=== PATIENT | female | born 1930 | race Caucasian/White ===

== ENCOUNTER 2017-01-01 00:16 | Inpatient (IN) | payer OTHER ==
--- NOTE | 2017-01-01 00:21 | PDOC ---
History of Present Illness - General History Source: EMS, [facility] Exam Limitations: Clinical Condition - History of Present Illness Initial Comments: 01/01/17 00:21 The patient is an 86 year old female with history of hypertension, thyroid disease, and dementia, brought in by EMS for left sided weakness and altered mental status this evening. Per EMS, the patient was found slumped over in her chair by [facility] staff at 11PM. Last known well was 3PM. Patient is unable to provide remainder of history secondary to clinical condition. <Magda Beltran - Last Filed: 01/01/17 00:21> <Thea Betancourt - Last Filed: 01/01/17 05:50> - General Chief Complaint: CVA/TIA Stated Complaint: STROKE Past History <Magda Beltran - Last Filed: 01/01/17 00:21> <Thea Betancourt - Last Filed: 01/01/17 05:50> - Past Medical History Allergies/Adverse Reactions: Allergies Allergy/AdvReac Type Severity Reaction Status Date / Time No Known Allergies Allergy Verified 01/01/17 00:19 Home Medications: Ambulatory Orders Amlodipine Besylate [Norvasc -] 2.5 mg PO DAILY 01/01/17 Calcium Carbonate [Tums] 200 mg PO 01/01/17 Cholecalciferol (Vitamin D3) [Vitamin D3 -] 1,000 unit PO DAILY 01/01/17 Furosemide [Lasix -] 40 mg PO DAILY 01/01/17 Galantamine Hydrobromide [Razadyne (Nf)] 4 mg NR BID 01/01/17 Levothyroxine [Synthroid -] 50 mcg PO DAILY 01/01/17 Raloxifene HCl 60 mg PO DAILY 01/01/17 Review of Systems - Review of Systems Able to Perform ROS?: Yes Comments:: 01/01/17 00:33 Patient is unable to provide ROS secondary to clinical condition. <Magda Beltran - Last Filed: 01/01/17 00:21> *Physical Exam - Physical Exam Comments: 01/01/17 00:34 GENERAL: Awake, moderately alert, not fully oriented (baseline dementia) HEAD: No signs of trauma EYES: PERRLA, sclera anicteric, conjunctiva clear ENT: Auricles normal inspection, hearing grossly normal, nares patent, oropharynx clear without exudates. Moist mucosa NECK: Supple, no lymphadenopathy, JVD, or masses LUNGS: Breath sounds equal, clear to auscultation bilaterally. No wheezes, and no crackles HEART: Regular rate and rhythm, normal S1 and S2, no murmurs, rubs or gallops ABDOMEN: Soft, normoactive bowel sounds. No guarding, no rebound. No masses EXTREMITIES: +B/l lower extremity pitting edema, right greater than left. Normal range of motion. No clubbing or cyanosis. No cords, erythema, or tenderness NEUROLOGICAL: See NIHSS. SKIN: Warm, Dry, normal turgor, no rashes or lesions noted. <Magda Beltran - Last Filed: 01/01/17 00:21> NIH Stroke Scale - Last Known Well Date/Time & Onset Date Last Known Well: 01/01/17 Time Last Known Well: 15:00 - Initial Evaluation Level of consciousness: Alert Ask patient the month and their age: Both incorrect Ask patient to open & close eyes; make fist and let go: Obeys both correctly Best gaze (horizontal eye movement): Partial gaze palsy Visual field testing: Complete hemianopia Facial paresis (Show teeth/raise eyebrows/close eyes tight): Partial paralysis ( total or near paralysis of lower face) Motor Function: Left Arm: No effort against gravity Motor Function: Right Arm: Normal (extends arm 90 (or 45) degrees for 10 seconds without drift Motor Function: Left Leg: No effort against gravity Motor Function: Right Leg: Normal (extends leg 30 degrees for 5 seconds without drift) Limb Ataxia: No ataxia Sensory(Use pinprick test arms,legs,trunk,face/side to side): Normal Best language (Describe picture, name items, read sentences): Mild to moderate aphasia Dysarthria (read several words): Mild to moderate slurring of words Extinction and Inattention: Inattention or extinction bilaterally to one of the sensory modalities - Total Score NIH Stroke Scale Score: 16 <Thea Betancourt - Last Filed: 01/01/17 05:50> Critical Care Time/[facility] Note - Medical Decision Making Note: 01/01/17 00:41 Documentation prepared by Magda Beltran, acting as hospitalist medical director for Thea Betancourt MD. <Magda Beltran - Last Filed: 01/01/17 00:21> - Medical Decision Making Note: 01/01/17 00:50 Patient Name: MARBIN LAN THIS IS A PRELIMINARY REPORT FROM [facility] DATE OF SERVICE: 2017-01-01 00:24:14 IMAGES: 140 EXAM: CT HEAD without contrast HISTORY: Left sided stroke COMPARISON: None. TECHNIQUE: CT Head with serial axial images extending from the vertex to the base of skull was performed without vascular contrast. FINDINGS: Brain parenchyma is normal in attenuation with no mass or hematoma. There is no midline shift. Daniels and white matter differentiation is normal. There is some lucency in the periventricular white matter Ventricles are mildly prominent. Sulci and extra-axial CSF spaces are mildly prominent. Intracranial vascular structures are normal in attenuation. There is no calvarial fracture. Paranasal sinuses are normally aerated. IMPRESSION: No intracranial mass or bleed Chronic appearing involutional changes of aging THIS DOCUMENT HAS BEEN ELECTRONICALLY SIGNED 01/01/17 05:50 Labs are normal; EKG NSR; pt will be admitted to telelmetry for CVA; neuro consult requested for the AM. <Thea Betancourt - Last Filed: 01/01/17 05:50> Discharge Disposition <Magda Beltran - Last Filed: 01/01/17 00:21> - Discharge Dispostion Admit: Yes <Thea Betancourt - Last Filed: 01/01/17 05:50> - Diagnosis Cerebrovascular accident (CVA) - Discharge Dispostion Condition at time of disposition: Poor
[2017-01-01 00:23] VITALS: BMI 22.6
[2017-01-01 00:30] LABS: BASOPHIL 1.1 % (0-2.0); EOSINOPHIL 3.5 % (0-4.5); MCH 31.3 pg (25.7-33.7); MCHC 33.1 g/dl (32.0-36.0); MEAN CELL VOLUME 94.6 fl (80-96); MEAN PLT VOLUME 8.4 fl (7.5-11.1); NEUTROPHILS 49.9 % (42.8-82.8); PLATELET COUNT 203 K/MM3 (134-434); RDW 14.7 % (11.6-15.6); WHITE BLOOD COUNT 6.2 K/mm3 (4.0-10.0)
[2017-01-01 00:48] LABS: INR 1.04 (0.82-1.09); PROTHROMBIN TIME (PATIENT) 11.7 SEC (9.98-11.88)
[2017-01-01 01:59] LABS: ALBUMIN 2.9 g/dl (3.4-5.0); ANION GAP 13 (8-16); BILIRUBIN,TOTAL 0.2 mg/dL (0.2-1.0); CALCIUM 8.3 mg/dL (8.5-10.1); CO2 26 mmol/L (21-32); CREATININE 0.8 mg/dL (0.55-1.02); GLUCOSE,RANDOM 108 mg/dL (74-106); SGOT/AST 19 U/L (15-37); SGPT/ALT 14 U/L (12-78); TOT PROT 6.2 g/dl (6.4-8.2)
[2017-01-01 02:02] LABS: ALK PHOS 87 U/L (45-117); CPK 53 IU/L (26-192); TROPONIN I < 0.02 ng/ml (0.00-0.05)
[2017-01-01] MEDS ORDERED: ASPIRIN 81 MG CHEWABLE TABLETS PO ONE (03:19)
[2017-01-01] MEDS ORDERED: SODIUM CHLORIDE 1,000 ML IV STA (04:00)
--- NOTE | 2017-01-01 04:25 | HP ---
CHIEF COMPLAINT: Possible stroke as per jail PCP: Not on staff HISTORY OF PRESENT ILLNESS: Unable to obtain information due to patients medical condition. Most information obtained from ED staff Patient is an 86 year old female with a PMHx of HTN, hypothyroidism?, dementia who was BIBEMS from the [facility] due to altered mental status associated with left sided weakness. As per ED attending, patient's jail reports around 15:00 yesterday patient was in her normal state of health. Then around 23:00 yesterday during the night rounds, patient was found to be slumped over her chair and unable to move the left side of her body associated with slurred speech. By the time I met the patient, she was already sleeping and uncooperative. Patient intermittently opened her eyes and would go back to sleep. Last known well was around 15:00 yesterday and was out of the TPA window. ER course was notable for: (1) CT head which revealed no acute pathology (2) ASA given (3) Recent Travel: Unable to obtain information due to patients medical condition. PAST MEDICAL HISTORY: Unable to obtain information due to patients medical condition. PAST SURGICAL HISTORY: Unable to obtain information due to patients medical condition. Social History: Unable to obtain information due to patients medical condition. Family History: Unable to obtain information due to patients medical condition. Allergies: No Known Allergies Allergy (Verified 01/01/17 00:19) HOME MEDICATIONS: REVIEW OF SYSTEMS Unable to obtain information due to patients medical condition. PHYSICAL EXAMINATION Vital Signs - 24 hr 01/01/17 01/01/17 00:19 01:49 Temperature 98.1 F Pulse Rate 75 Pulse Rate [ 67 Apical] Respiratory 14 12 Rate Blood Pressure 158/75 Blood Pressure 131/80 [Right Arm] O2 Sat by Pulse 97 99 Oximetry (%) GENERAL: Sleeping, intermittently awake. HEAD: Normal with no signs of trauma. EYES: Pupils equal, round and reactive to light, Sclera anicteric, conjunctiva clear. NECK: (-) lymphadenopathy, JVD, or masses. LUNGS: Breath sounds equal, clear to auscultation bilaterally. No wheezes, and no crackles. No accessory muscle use. HEART: bradycardiac with regular rhythm, normal S1 and S2 without murmur, rub or gallop. ABDOMEN: Soft, nontender, not distended, normoactive bowel sounds, no guarding, no rebound, no masses. UPPER EXTREMITIES: No peripheral edema. LOWER EXTREMITIES: No peripheral edema. NEUROLOGICAL: Left facial droop with slurred speech. Motor strength 0/5 in left lower and upper extremity. 5/5 in RLE and RUE. Limited examination due to patients medical condition. SKIN: Warm, dry, normal turgor, no rashes or lesions noted, normal capillary refill. Laboratory Results - last 24 hr 01/01/17 01/01/17 01/01/17 00:20 00:20 00:23 WBC RBC Hgb Hct MCV MCH MCHC RDW Plt Count MPV Neutrophils % Lymphocytes % Monocytes % Eosinophils % Basophils % PT with INR 11.70 INR 1.04 PTT (Actin FS) 28.0 Sodium Cancelled Potassium Cancelled Chloride Cancelled Carbon Dioxide Cancelled Anion Gap Cancelled BUN Cancelled Creatinine Cancelled Creat Clearance w eGFR Cancelled Random Glucose Cancelled Calcium Cancelled Total Bilirubin Cancelled AST Cancelled ALT Cancelled Alkaline Phosphatase Cancelled Creatine Kinase Cancelled Troponin I Cancelled Total Protein Cancelled Albumin Cancelled 01/01/17 01/01/17 00:23 01:12 WBC 6.2 RBC 3.61 Hgb 11.3 Hct 34.2 MCV 94.6 MCH 31.3 MCHC 33.1 RDW 14.7 Plt Count 203 MPV 8.4 Neutrophils % 49.9 Lymphocytes % 33.3 Monocytes % 12.2 H Eosinophils % 3.5 Basophils % 1.1 PT with INR INR PTT (Actin FS) Sodium 141 Potassium 3.8 Chloride 102 Carbon Dioxide 26 Anion Gap 13 BUN 24 H Creatinine 0.8 Creat Clearance w eGFR > 60 Random Glucose 108 H Calcium 8.3 L Total Bilirubin 0.2 AST 19 ALT 14 Alkaline Phosphatase 87 Creatine Kinase 53 Troponin I < 0.02 Total Protein 6.2 L Albumin 2.[address] (01/01/17): No intracranial mass or bleed. Chronic appearing involutional changes of aging ASSESSMENT/PLAN: Patient is an 86 year old female with a PMHx of HTN, dementia who was sent by her [facility] due to altered mental status associated with slurred speech and left sided weakness. Patient admitted for further monitoring and management. Left Sided Weakness -Likely secondary to possible CVA/TIA -NIHSSS according to ED: 16. -Head CT ordered and negative -Asa 162mg ordered -Statin 40mg ordered -Neuro checks Q1H -HOB 15 degrees -Seizure precautions -NPO -Speech and swallow ordered -PT ordered -Neurology consult placed -Lipid panel, A1C, TSH, B12 ordered -Carotid Doppler and ECHO ordered to rule out any cardiac or vascular etiology -Will likely need an MRI if neurology wants -May allow permissive HTN SBP>160 HTN -Currently hypotensive. Will hold off on BP mediations -Will need to med/rec medications by calling jail facility -Monitor BP Hypotensive -IV NS @75mls/hr -1 bolus ordered -Need to maintain permissive BP -Continu to monitor BP and will hold all anti-htn medications Dementia -Will need day team to confirm medications from jail F/E/N -IV NS @75mls/hr -Electrolytes wnl -NPO until speech and swallow eval Prophylaxis -High Risk. Heparin 5000units SQ Q8H -No GI required Disposition -Neurology consult placed. Awaiting recommendations Visit type - Emergency Visit Emergency Visit: Yes ED Registration Date: 01/01/17 Care time: The patient presented to the Emergency Department on the above date and was hospitalized for further evaluation of their emergent condition. - New Patient This patient is new to me today: Yes Date on this admission: 01/01/17 - Critical Care Critical Care patient: No
[2017-01-01] MEDS ORDERED: ASPIRIN 81 MG CHEWABLE TABLETS ONE ×2 (04:44→04:52)
[2017-01-01] MEDS: SODIUM CHLORIDE 1,000 ML IV SCH (04:54)
[2017-01-01] MEDS: HEPARIN NA (PORCINE) 5,000 UNITS/ML 1ML VIAL SQ SCH ×3 (06:04→22:27)
[2017-01-01 07:35] LABS: ALBUMIN 2.7 g/dl (3.4-5.0); ANION GAP 12 (8-16); BILIRUBIN,TOTAL 0.2 mg/dL (0.2-1.0); CALCIUM 7.7 mg/dL (8.5-10.1); CHOLESTEROL 192 mg/dL (50-200); CO2 24 mmol/L (21-32); CREATININE 0.7 mg/dL (0.55-1.02); GLUCOSE,RANDOM 93 mg/dL (74-106); MAGNESIUM 1.8 mg/dL (1.8-2.4); SGOT/AST 18 U/L (15-37); SGPT/ALT 14 U/L (12-78); TOT PROT 6.1 g/dl (6.4-8.2)
[2017-01-01 07:41] LABS: THYROID STIMULATING HORMONE 1.88 uIU/ml (0.358-3.74)
[2017-01-01 07:58] LABS: ALK PHOS 90 U/L (45-117)
--- NOTE | 2017-01-01 08:08 | PN ---
Teaching Attending Note Name of Resident: Emma Miller ATTENDING PHYSICIAN STATEMENT I saw and evaluated the patient. I reviewed the resident's note and discussed the case with the resident. I agree with the resident's findings and plan as documented. SUBJECTIVE: Patient brought from [place] for left sided weakness and slurred speech. H/O HTN and hypothyroidism, need further history from [place] or family as patient unable to communicate. No prior admissions to the facility. OBJECTIVE: Alert and responisve to name, aphasic HEENT: perrl, EOMI, left facial droop CVS: RRR, S1,S 2 Lungs: CTA ABd: Soft, NT, ND, BS+ Ext left hemiplegia. no edema Neuro: follows commands. CBCD WBC 6.2 K/mm3 (4.0-10.0) 01/01/17 00:23 RBC 3.61 M/mm3 (3.60-5.2) 01/01/17 00:23 Hgb 11.3 GM/dL (10.7-15.3) 01/01/17 00:23 Hct 34.2 % (32.4-45.2) 01/01/17 00:23 MCV 94.6 fl (80-96) 01/01/17 00:23 MCHC 33.1 g/dl (32.0-36.0) 01/01/17 00:23 RDW 14.7 % (11.6-15.6) 01/01/17 00:23 Plt Count 203 K/MM3 (134-434) 01/01/17 00:23 MPV 8.4 fl (7.5-11.1) 01/01/17 00:23 CMP Sodium 141 mmol/L (136-145) 01/01/17 01:12 Potassium 3.8 mmol/L (3.5-5.1) 01/01/17 01:12 Chloride 102 mmol/L (98-107) 01/01/17 01:12 Carbon Dioxide 26 mmol/L (21-32) 01/01/17 01:12 Anion Gap 13 (8-16) 01/01/17 01:12 BUN 24 mg/dL (7-18) H 01/01/17 01:12 Creatinine 0.8 mg/dL (0.55-1.02) 01/01/17 01:12 Creat Clearance w eGFR > 60 (>60) 01/01/17 01:12 Random Glucose 108 mg/dL (74-106) H 01/01/17 01:12 Calcium 8.3 mg/dL (8.5-10.1) L 01/01/17 01:12 Total Bilirubin 0.2 mg/dL (0.2-1.0) 01/01/17 01:12 AST 19 U/L (15-37) 01/01/17 01:12 ALT 14 U/L (12-78) 01/01/17 01:12 Alkaline Phosphatase 87 U/L (45-117) 01/01/17 01:12 Total Protein 6.2 g/dl (6.4-8.2) L 01/01/17 01:12 Albumin 2.9 g/dl (3.4-5.0) L 01/01/17 01:12 CARDIAC ENZYMES Creatine Kinase 53 IU/L (26-192) 01/01/17 01:12 Troponin I < 0.02 ng/ml (0.00-0.05) 01/01/17 01:12 ASSESSMENT AND PLAN: Acute CVA with left hemiplegia- stroke workup Aspirin 325 mg PO daily Statin CT head in 24 hours, carotid doppler and ECHO. Follow neurology consult PT and speech and swallow
--- NOTE | 2017-01-01 09:05 | PN ---
Physical Exam: SUBJECTIVE: Patient seen and examined Patient is an 86 year old female with a PMHx of HTN, dementia who came in from [facility] due to altered mental status associated with left sided weakness. Patient was not a candidate for TPA since the time when she developed stroke is unknown therefore missed the TPA window. Daughter at bedside. Follows commands. Patient was transferred from [facility] with Left sided weakness. OBJECTIVE: Vital Signs Temperature 98.1 F 01/01/17 07:38 Pulse Rate 63 01/01/17 07:38 Respiratory Rate 18 01/01/17 07:40 Blood Pressure 133/60 01/01/17 07:38 O2 Sat by Pulse Oximetry (%) 100 01/01/17 07:40 GENERAL: The patient is awake, alert, follows some commands . in no acute distress. HEAD: Normal with no signs of trauma. EYES: extraocular movements intact, sclera anicteric, conjunctiva clear. Positive for lateral gaze to the right. Cannot folloe ENT: Ears normal, oropharynx clear without exudates, moist mucous membranes. NECK: Trachea midline, full range of motion, supple. LUNGS: Breath sounds equal, clear to auscultation bilaterally, no wheezes, no crackles, no accessory muscle use. HEART: Regular rate and rhythm, S1, S2 without murmur, rub or gallop. ABDOMEN: Soft, nontender, nondistended, normoactive bowel sounds, no guarding, no rebound, no hepatosplenomegaly, no masses. EXTREMITIES: 2+ pulses, warm, well-perfused, no edema. NEUROLOGICAL: Cranial nerves II through XII grossly intact. Right conjugate gaze deviation ,unable to count fingers peripherally Mod left facial droop. Depressed gag. Left hemiparesis 2/5. Depressed reflexes on left. Left Babinski. PSYCH: Normal mood, normal affect. Has no left side neglect. SKIN: Warm, dry, normal turgor, no rashes or lesions noted CBCD WBC 6.2 K/mm3 (4.0-10.0) 01/01/17 00:23 RBC 3.61 M/mm3 (3.60-5.2) 01/01/17 00:23 Hgb 11.3 GM/dL (10.7-15.3) 01/01/17 00:23 Hct 34.2 % (32.4-45.2) 01/01/17 00:23 MCV 94.6 fl (80-96) 01/01/17 00:23 MCHC 33.1 g/dl (32.0-36.0) 01/01/17 00:23 RDW 14.7 % (11.6-15.6) 01/01/17 00:23 Plt Count 203 K/MM3 (134-434) 01/01/17 00:23 MPV 8.4 fl (7.5-11.1) 01/01/17 00:23 CMP Sodium 145 mmol/L (136-145) 01/01/17 06:57 Potassium 4.1 mmol/L (3.5-5.1) 01/01/17 06:57 Chloride 109 mmol/L (98-107) H 01/01/17 06:57 Carbon Dioxide 24 mmol/L (21-32) 01/01/17 06:57 Anion Gap 12 (8-16) 01/01/17 06:57 BUN 18 mg/dL (7-18) D 01/01/17 06:57 Creatinine 0.7 mg/dL (0.55-1.02) 01/01/17 06:57 Creat Clearance w eGFR > 60 (>60) 01/01/17 06:57 Random Glucose 93 mg/dL (74-106) 01/01/17 06:57 Calcium 7.7 mg/dL (8.5-10.1) L 01/01/17 06:57 Total Bilirubin 0.2 mg/dL (0.2-1.0) 01/01/17 06:57 AST 18 U/L (15-37) 01/01/17 06:57 ALT 14 U/L (12-78) 01/01/17 06:57 Alkaline Phosphatase 90 U/L (45-117) 01/01/17 06:57 Total Protein 6.1 g/dl (6.4-8.2) L 01/01/17 06:57 Albumin 2.7 g/dl (3.4-5.0) L 01/01/17 06:57 CARDIAC ENZYMES Creatine Kinase 53 IU/L (26-192) 01/01/17 01:12 Troponin I < 0.02 ng/ml (0.00-0.05) 01/01/17 01:12 Home Medication List Medication Instructions Recorded Confirmed Type Amlodipine Besylate [Norvasc -] 2.5 mg PO DAILY 01/01/17 01/01/17 History Calcium Carbonate [Tums] 200 mg PO 01/01/17 History Cholecalciferol (Vitamin D3) 1,000 unit PO DAILY 01/01/17 01/01/17 History [Vitamin D3 -] Furosemide [Lasix -] 40 mg PO DAILY 01/01/17 01/01/17 History Galantamine Hydrobromide [Razadyne 4 mg NR BID 01/01/17 01/01/17 History (Nf)] Levothyroxine [Synthroid -] 50 mcg PO DAILY 01/01/17 01/01/17 History Raloxifene HCl 60 mg PO DAILY 01/01/17 01/01/17 History Active Medications Generic Name Dose Route Start Last Admin Trade Name Freq PRN Reason Stop Dose Admin Aspirin 81 mg 01/01/17 10:00 Ecotrin - PO DAILY JAVIER Atorvastatin Calcium 40 mg 01/01/17 22:00 Lipitor - PO HS JAVIER Heparin Sodium (Porcine) 5,000 unit 01/01/17 06:00 01/01/17 06:04 Heparin - SQ 5,000 unit TID JAVIER Administration Sodium Chloride 1,000 mls @ 75 mls/hr 01/01/17 03:45 01/01/17 04:54 Normal Saline - IV 75 mls/hr ASDIR JAVIER Administration CT of head (01/01 PM) shows new right basal ganglia hypodensity; underlying atrophy; left ventricular dilatation. Carotid duplex doppler: Calcified intima and small plaques but no sig hemodynamic lesions. A/P: Patient is an 86 year old female with a PMHx of HTN, hypothyroidism, dementia from the [facility] due to altered mental status associated with left sided weakness. Missed the TPA apportunity. # Acute right cerebral vascular accident with left hemiplegia on Aspirin, lipitor, CT head in 24 hours and carotid doppler and ECHO. Swallowing evaluation. # Hx of Alzheimer's disease. # Hx of HTN continue meds DVT Px Heparin Visit type - Emergency Visit Emergency Visit: Yes ED Registration Date: 01/01/17 Care time: The patient presented to the Emergency Department on the above date and was hospitalized for further evaluation of their emergent condition. - New Patient This patient is new to me today: Yes Date on this admission: 01/01/17 - Critical Care Critical Care patient: No
[2017-01-01] MEDS: ASPIRIN COATED 81 MG TABLET.EC PO SCH (11:00)
[2017-01-01] MEDS: ATORVASTATIN CA 40 MG TABLET (FP) PO SCH (22:27)
[2017-01-02] MEDS: HEPARIN NA (PORCINE) 5,000 UNITS/ML 1ML VIAL SQ SCH ×3 (06:59→21:45)
[2017-01-02] MEDS: SODIUM CHLORIDE 1,000 ML IV SCH ×2 (06:59→16:12)
[2017-01-02] MEDS: ASPIRIN COATED 81 MG TABLET.EC PO SCH (11:22)
--- NOTE | 2017-01-02 12:37 | PN ---
Progress Note (short form) - Note Progress Note: Patient is comfortable with no acute distress. Is better today, vision is better today. Follows commands better than yesterday. Vital Signs Temperature 98 F 01/02/17 10:00 Pulse Rate 76 01/02/17 10:00 Respiratory Rate 18 01/02/17 10:00 Blood Pressure 157/78 01/02/17 10:00 O2 Sat by Pulse Oximetry (%) 95 01/01/17 21:00 GENERAL: The patient is awake, alert, follows some commands . in no acute distress. HEAD: Normal with no signs of trauma. EYES: extraocular movements intact, sclera anicteric, conjunctiva clear. Positive for lateral gaze to the right. Cannot folloe ENT: Ears normal, oropharynx clear without exudates, moist mucous membranes. NECK: Trachea midline, full range of motion, supple. LUNGS: Breath sounds equal, clear to auscultation bilaterally, no wheezes, no crackles, no accessory muscle use. HEART: Regular rate and rhythm, S1, S2 positive, ANUJ 3/6 no rub or gallop. ABDOMEN: Soft, nontender, nondistended, normoactive bowel sounds, no guarding, no rebound, no hepatosplenomegaly, no masses. EXTREMITIES: 2+ pulses, warm, well-perfused, no edema. NEUROLOGICAL: Cranial nerves II through XII grossly intact. Right conjugate gaze deviation ,unable to count fingers peripherally Mod left facial droop. Depressed gag. Left hemiparesis 2/5. Depressed reflexes on left. Left Babinski. PSYCH: Normal mood, normal affect. Has no left side neglect. SKIN: Warm, dry, normal turgor, no rashes or lesions noted CBCD WBC 6.2 K/mm3 (4.0-10.0) 01/01/17 00:23 RBC 3.61 M/mm3 (3.60-5.2) 01/01/17 00:23 Hgb 11.3 GM/dL (10.7-15.3) 01/01/17 00:23 Hct 34.2 % (32.4-45.2) 01/01/17 00:23 MCV 94.6 fl (80-96) 01/01/17 00:23 MCHC 33.1 g/dl (32.0-36.0) 01/01/17 00:23 RDW 14.7 % (11.6-15.6) 01/01/17 00:23 Plt Count 203 K/MM3 (134-434) 01/01/17 00:23 MPV 8.4 fl (7.5-11.1) 01/01/17 00:23 CMP Sodium 145 mmol/L (136-145) 01/01/17 06:57 Potassium 4.1 mmol/L (3.5-5.1) 01/01/17 06:57 Chloride 109 mmol/L (98-107) H 01/01/17 06:57 Carbon Dioxide 24 mmol/L (21-32) 01/01/17 06:57 Anion Gap 12 (8-16) 01/01/17 06:57 BUN 18 mg/dL (7-18) D 01/01/17 06:57 Creatinine 0.7 mg/dL (0.55-1.02) 01/01/17 06:57 Creat Clearance w eGFR > 60 (>60) 01/01/17 06:57 Random Glucose 93 mg/dL (74-106) 01/01/17 06:57 Calcium 7.7 mg/dL (8.5-10.1) L 01/01/17 06:57 Total Bilirubin 0.2 mg/dL (0.2-1.0) 01/01/17 06:57 AST 18 U/L (15-37) 01/01/17 06:57 ALT 14 U/L (12-78) 01/01/17 06:57 Alkaline Phosphatase 90 U/L (45-117) 01/01/17 06:57 Total Protein 6.1 g/dl (6.4-8.2) L 01/01/17 06:57 Albumin 2.7 g/dl (3.4-5.0) L 01/01/17 06:57 CARDIAC ENZYMES Creatine Kinase 53 IU/L (26-192) 01/01/17 01:12 Troponin I < 0.02 ng/ml (0.00-0.05) 01/01/17 01:12 Current Medications Generic Name Dose Route Start Last Admin Trade Name Freq PRN Reason Stop Dose Admin Aspirin 81 mg 01/01/17 10:00 01/02/17 11:22 Ecotrin - PO Not Given DAILY JAVIER Atorvastatin Calcium 40 mg 01/01/17 22:00 01/01/17 22:27 Lipitor - PO 40 mg HS JAVIER Administration Heparin Sodium (Porcine) 5,000 unit 01/01/17 06:00 01/02/17 06:59 Heparin - SQ 5,000 unit TID JAVIER Administration Sodium Chloride 1,000 mls @ 75 mls/hr 01/01/17 03:45 01/02/17 06:59 Normal Saline - IV 75 mls/hr ASDIR JAVIER Administration Home Medications Medication Instructions Recorded Amlodipine Besylate [Norvasc -] 2.5 mg PO DAILY 01/01/17 Calcium Carbonate [Tums] 200 mg PO 01/01/17 Cholecalciferol (Vitamin D3) 1,000 unit PO DAILY 01/01/17 [Vitamin D3 -] Furosemide [Lasix -] 40 mg PO DAILY 01/01/17 Galantamine Hydrobromide [Razadyne 4 mg NR BID 01/01/17 (Nf)] Levothyroxine [Synthroid -] 50 mcg PO DAILY 01/01/17 Raloxifene HCl 60 mg PO DAILY 01/01/17 CT of head (01/01 PM) shows new right basal ganglia hypodensity; underlying atrophy; left ventricular dilatation. Carotid duplex doppler: Calcified intima and small plaques but no sig hemodynamic lesions. A/P: Patient is an 86 year old female with a PMHx of HTN, hypothyroidism, dementia from the [facility] due to altered mental status associated with left sided weakness. Missed the TPA apportunity. 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 PT Eval and Rx. Antiplatelet Rx. Rehab and SNF. # Hx of Alzheimer's disease. # Hx of HTN continue meds DVT Px Heparin Visit type - Emergency Visit Emergency Visit: Yes ED Registration Date: 01/01/17 Care time: The patient presented to the Emergency Department on the above date and was hospitalized for further evaluation of their emergent condition. - New Patient This patient is new to me today: No - Critical Care Critical Care patient: No
--- NOTE | 2017-01-02 13:25 | CONSULT ---
Consult - text type - Consultation Consultation Note: NEUROLOGY CONSULTATION is greatly appreciated: Events reviewed and discussed with RN last night. F/U CT ordered. Discussed with Dr. Rodriguez today. Pt. examined with daughter, Reshma, at bedside who provides detailed history. This 86 yo RH woman with 2 daughters has PMH sig for hypothyroidism, HTN , and dementia with 5 years of progressive cognitive decline. Maintained on L-Thyroxin, amlodipine, lasix, and galantamine. S/P fall 2011 and Left Hip ORIF. Began to repeat herself 5 years ago. Followed at [facility]. Was on donepezil 5 mg but did not tolerate 10- mg due to dizziness. Able to live independently until recent months when she became increasingly confused due to infection and was hospitalized. Transferred here Tuesday night with Left sided weakness. Initial CT neg for CVA but did show atrophy and Asymmetrical enlargement of the Left lat. Ventricle. Able to swallow yogurt and apple sauce according to her other daughter (an RN) but not H2O CT of head (01/01 PM) shows new right basal ganglia hypodensity; underlying atrophy; left ventricular dilatation; and no heme. Carotid duplex doppler: Calcified intima and small plaques but no sig hemodynamic lesions. grout pump operator: NSR EXAM: No bruits. Cor reg. No evidence of external head trauma. NEURO: Awake alert. [facility] but not month or year. Fluent speech. Identifies left hand as her own. Right conjugate gaze deviation but counts fingers in all beckett. Mod left facial droop. Depressed gag. Left hemiparesis 2/5. Depressed reflexes on left. Left Babinski. Feels pinch left hand and foot. IMP: 1. 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 Underlying OMS c/w Alzheimer's disease. SUGGEST: Swallowing evaluation. PT Eval and Rx. Antiplatelet Rx. Rx for BP and Cholesterol. Will require Rehab and SNF level of care (discussed with daughter ). Thank you very much, Diego Rees MD
[2017-01-02] MEDS: ATORVASTATIN CA 40 MG TABLET (FP) PO SCH (21:31)
[2017-01-03] MEDS: SODIUM CHLORIDE 1,000 ML IV SCH (06:31)
[2017-01-03] MEDS: HEPARIN NA (PORCINE) 5,000 UNITS/ML 1ML VIAL SQ SCH ×3 (06:32→21:59)
--- NOTE | 2017-01-03 11:32 | CONSULT ---
Admitting History and Physical - Primary Care Physician PCP: Lucian Rodriguez - Admission History of Present Illness: Patient is an 86 year old female with a PMHx of HTN, dementia who was sent by her care home [facility] due to altered mental status associated with slurred speech and left sided weakness. Neurology IMP: 1. Acute right cerebral dysfunction due to basal ganglia ( Lenticulostriate) CVA 2. Underlying OMS c/w Alzheimer's disease. Pt confused but verbal, with mild dysarthria. Unaware of left side paralysis, attempting to clap, baffled when unsuccessful. History Source: Medical Record Limitations to Obtaining History: Clinical Condition, Dementia - Advance Directives Advance Directives: Yes: Health Care Proxy, DNR - Smoking History Smoking history: Unknown if ever smoked Have you smoked in the past 12 months: No - Alcohol/Substance Use Hx Alcohol Use: No History - Admission Reason For Visit: CEREBRALVASCULAR ACCIDENT (CVA) - Diagnostics CT Scan: Report Reviewed (new right basal ganglia hypodensity; underlying atrophy; left ventricular dilatation; and no heme.) Other: Report Reviewed (Carotid duplex doppler: Calcified intima and small plaques but no sig hemodynamic lesions.) - General Mental Status: Awake and Alert, Able to Follow Commands, Forgetful, Vague, Confused Attention: Intact Ability to Follow Directions: Fair Head/Neck Control: Fair - Hearing Hearing: Normal Speech Evaluation - Communication Primary Language: OCCITAN Communication: Yes: Simple Responses, Dysarthria Oral Expression Ability: Yes: Mild Impairment - Speech Production Able to Make Needs Known: Yes: WNL Intelligibility: Yes: Mildly Impaired - Speech Characteristics Voice Loudness: Normal Voice Pitch: Yes: Normal Voice Phonatory-based Quality: Yes: Normal Speech Clarity: < 75% Nasal Resonance: Normal Articulation: Yes: Imprecise - Language/Auditory Comprehension Follows: Yes: 1 Stage Simple Commands - Language/Verbal Expression Able to Communicate Wants and Needs: Yes: WNL - Swallow Evaluation/Bedside Assessment Current Nutritional Intake: NPO Oral Secretions: Yes: WFL Dentition: Yes: Missing Teeth Facial Symmetry at Rest: Facial Droop Left Facial Symmetry on Retraction: Facial Droop Left Sensation: Reduced Left Pucker Lips: Droops Left Smile: Droops Left Laryngeal Elevation: Impaired Laryngeal Movement: Able to Palpate, Labored,delay initiation Labial Seal: Impaired Left Chewing: Impaired Oral Prep Time: WFL A-P Transit: WFL Pocketing: Present Left Timing of Swallow: Delayed Coughing/Throat Clear: Yes (thin liquid) Change in Voice: Yes (wetness) Recommendations - Speech Evaluation, Impression/Plan Impression: Baseline Dementia with acute right cva with left HP. Pt confused but verbal, with mild dysarthria. Unaware of left side paralysis, attempting to clap, baffled when unsuccessful. Cough response/vocal wetness with water. Pooling in left buccal cavity sec impaired sensation/droop. Good potential for functional swallow. - Disposition Discharge to: Longterm Facility - Dysphagia Impressions/Plan Swallowing Skills: Impaired Dysphagia Impressions: Mild Impairment, Moderate Impairment, Ongoing Evaluation , Suspect Aspiration *Silent aspiration: cannot be R/O at bedside Recommendations: Modified Barium Swallow - Recommendations Diet Consistency: Dysphagia Pureed Medication Administration: Crushed with applesauce (place in right side of mouth. Check for pocketing.) Liquids: Other (defer liquids until mbs.)
--- NOTE | 2017-01-03 13:28 | PN ---
Physical Exam: SUBJECTIVE: In brief, pt is an 86yo F with history of HTN and dementia from [facility] who presented to the hospital with L-sided hemiparesis found to have a CVA as documented by Head CT w/o contrast. No acute events overnight. Pt still has total weakness of L-side without change. Pt has no other complaints; denies NAVARRO, visual changes, CP/discomfort, and SOB. OBJECTIVE: Vital Signs Period Temp Pulse Resp BP Sys/Gonzalez Pulse Ox Last 24 Hr 98.5 F-100.1 F 72-90 18-20 142-170/52-83 95-95 GENERAL: The patient is awake, alert, and fully oriented, in no acute distress. HEENT: No JVD, Moist mucosa, pt has L-sided facial droop at rest and with intention, R-sided gaze deviation at rest; Pupils FAUSTINA. Pt noted to have dysarthria. LUNGS: CTA bilaterally, no wheezes, rhonchi, rales. Good inspiratory effort. HEART: RRR, S1, S2 without murmur appreciated. ABDOMEN: Soft, nontender, nondistended, normoactive bowel sounds, no guarding, no rebound, no hepatosplenomegaly. EXTREMITIES: 2+ DP pulses, no edema noted. See neurological exam NEUROLOGICAL: R sided gaze deviation. Peripheral vision spared albeit with shifting due to gaze deviation, Pupils FAUSTINA, tongue deviation to the L, could not appreciate uvula deviation, L lower-face hemiparesis resulting in L sided facial droop. RUE: Strength 5/5 with arm flexion/extension, hand-head of visual merchandising, and wrist flexion and extention; full sensation intact LUE: Strength 0/5, sensation intact to pressure RLE: Strength 4/5 hip flexion, 5/5 leg extension/flexion, dorsal and plantar flexions; sensation fully intact LLE: Strength 0/5 in hip flexion, leg extension/flexion, and dorsal/plantar flexions; again sensation moderately intact to pressure sensation. Babinski: upward on L side; downgoing on R Reflexes: 1/4 with L patellar and heel reflexes, could not assess biceps on L side; 2/4 with R side including biceps, patellar and heel reflexes. SKIN: No rashes or lesions noted Laboratory Results - last 24 hr 01/01/17 01/02/17 01/03/17 00:20 18:22 05:27 POC Glucometer 113.41512 86 79 Active Medications Generic Name Dose Route Start Last Admin Trade Name Zheng PRN Reason Stop Dose Admin Aspirin 81 mg 01/01/17 10:00 01/02/17 11:22 Ecotrin - PO Not Given DAILY JAVIER Atorvastatin Calcium 40 mg 01/01/17 22:00 01/02/17 21:31 Lipitor - PO Not Given HS JAVIER Heparin Sodium (Porcine) 5,000 unit 01/01/17 06:00 01/03/17 06:32 Heparin - SQ 5,000 unit TID JAVIER Administration Sodium Chloride 1,000 mls @ 75 mls/hr 01/01/17 03:45 01/03/17 06:31 Normal Saline - IV Not Given ASDIR [facility] ASSESSMENT/PLAN: 1) CVA --Speech and swallow eval today --Modified barium swallow ordered --PT eval today for strengthening exercises --Continue Lipitor 40mg PO HS --Continue antiplatelet therapy: ASA 81mg --Pt receiving NS @75cc/hr 2) HTN --Pt outside of 24hr window; can control BP without drastic changes --Continue Norvasc 2.5mg; would hold off until effect of first anti- hypertensive is seen so that we don't decrease her BP too fast 3) Hypothyroidism --Restart Levothyroxine home dose FEN: Fluids: NS@ 75cc/hr Electrolyte abnormalities Nutrition: NPO; mod. barium test PPX: DVT - Heparing 5000 SQ TID Deconditioning - PT eval Dispo: Will need rehab/SNF assisted; awaiting evaluations Case discussed with medical team Carlos Tipton DO - Internal Medicine PGY-1 Visit type - Emergency Visit Emergency Visit: No - New Patient This patient is new to me today: No - Critical Care Critical Care patient: No
[2017-01-03] MEDS: amLODIPine BESYLATE 2.5 MG TABLET (FP) PO SCH (16:03)
[2017-01-03] MEDS: ASPIRIN COATED 81 MG TABLET.EC PO SCH (16:03)
[2017-01-03] MEDS: LEVOTHYROXINE NA 50 MCG TABLET (FP) PO SCH (16:03)
--- NOTE | 2017-01-03 20:34 | PN ---
Progress Note (short form) - Note Progress Note: NEUROLOGY FOLLOW-UP: Events reviewed, Patient examined. Modified Barium swallow showed delayed swallow and trace aspiration. Pt. Is alert. Fluent but confused speech. Full beckett to threat. Flaccid left hemiparesis. Left Babinski. IMP: Acute right Basal Ganglia CVA Plan: ASA 81 mg/day Swallowing therapy. PM&R eval and PT as directed. Thank you very much, Diego Rees MD
--- NOTE | 2017-01-03 20:35 | PN ---
Teaching Attending Note Name of Resident: Laila Wong ATTENDING PHYSICIAN STATEMENT I saw and evaluated the patient. I reviewed the resident's note and discussed the case with the resident. I agree with the resident's findings and plan as documented. SUBJECTIVE: Patient is feeling better with no acute distress, eye contact is better, able to communicate better. Has no new complains. OBJECTIVE: Vital Signs Temperature 98.1 F 01/03/17 18:00 Pulse Rate 88 01/03/17 18:00 Respiratory Rate 20 01/03/17 18:00 Blood Pressure 149/68 01/03/17 18:00 O2 Sat by Pulse Oximetry (%) 95 01/03/17 09:00 CBCD WBC 6.2 K/mm3 (4.0-10.0) 01/01/17 00:23 RBC 3.61 M/mm3 (3.60-5.2) 01/01/17 00:23 Hgb 11.3 GM/dL (10.7-15.3) 01/01/17 00:23 Hct 34.2 % (32.4-45.2) 01/01/17 00:23 MCV 94.6 fl (80-96) 01/01/17 00:23 MCHC 33.1 g/dl (32.0-36.0) 01/01/17 00:23 RDW 14.7 % (11.6-15.6) 01/01/17 00:23 Plt Count 203 K/MM3 (134-434) 01/01/17 00:23 MPV 8.4 fl (7.5-11.1) 01/01/17 00:23 CMP Sodium 145 mmol/L (136-145) 01/01/17 06:57 Potassium 4.1 mmol/L (3.5-5.1) 01/01/17 06:57 Chloride 109 mmol/L (98-107) H 01/01/17 06:57 Carbon Dioxide 24 mmol/L (21-32) 01/01/17 06:57 Anion Gap 12 (8-16) 01/01/17 06:57 BUN 18 mg/dL (7-18) D 01/01/17 06:57 Creatinine 0.7 mg/dL (0.55-1.02) 01/01/17 06:57 Creat Clearance w eGFR > 60 (>60) 01/01/17 06:57 Random Glucose 93 mg/dL (74-106) 01/01/17 06:57 Calcium 7.7 mg/dL (8.5-10.1) L 01/01/17 06:57 Total Bilirubin 0.2 mg/dL (0.2-1.0) 01/01/17 06:57 AST 18 U/L (15-37) 01/01/17 06:57 ALT 14 U/L (12-78) 01/01/17 06:57 Alkaline Phosphatase 90 U/L (45-117) 01/01/17 06:57 Total Protein 6.1 g/dl (6.4-8.2) L 01/01/17 06:57 Albumin 2.7 g/dl (3.4-5.0) L 01/01/17 06:57 CARDIAC ENZYMES Creatine Kinase 53 IU/L (26-192) 01/01/17 01:12 Troponin I < 0.02 ng/ml (0.00-0.05) 01/01/17 01:12 Current Medications Generic Name Dose Route Start Last Admin Trade Name Zheng PRN Reason Stop Dose Admin Amlodipine Besylate 2.5 mg 01/03/17 14:00 01/03/17 16:03 Norvasc - PO 2.5 mg DAILY JAVIER Administration Aspirin 81 mg 01/01/17 10:00 01/03/17 16:03 Ecotrin - PO 81 mg DAILY JAVIER Administration Atorvastatin Calcium 40 mg 01/01/17 22:00 01/02/17 21:31 Lipitor - PO Not Given HS [facility] Heparin Sodium (Porcine) 5,000 unit 01/01/17 06:00 01/03/17 16:03 Heparin - SQ 5,000 unit TID JAVIER Administration Sodium Chloride 1,000 mls @ 75 mls/hr 01/01/17 03:45 01/03/17 06:31 Normal Saline - IV Not Given ASDIR [facility] Levothyroxine Sodium 50 mcg 01/03/17 14:00 01/03/17 16:03 Synthroid - PO 50 mcg AM JAVIER Administration Home Medications Medication Instructions Recorded Amlodipine Besylate [Norvasc -] 2.5 mg PO DAILY 01/01/17 Calcium Carbonate [Tums] 200 mg PO 01/01/17 Cholecalciferol (Vitamin D3) 1,000 unit PO DAILY 01/01/17 [Vitamin D3 -] Furosemide [Lasix -] 40 mg PO DAILY 01/01/17 Galantamine Hydrobromide [Razadyne 4 mg NR BID 01/01/17 (Nf)] Levothyroxine [Synthroid -] 50 mcg PO DAILY 01/01/17 Raloxifene HCl 60 mg PO DAILY 01/01/17 PE: per resident's note Unable to move her left Upper and lower extremity. CT of head (01/01 PM) shows new right basal ganglia hypodensity; underlying atrophy; left ventricular dilatation. Carotid duplex doppler: Calcified intima and small plaques but no sig hemodynamic lesions. ASSESSMENT AND PLAN: Patient is an 86 year old female with a PMHx of HTN, hypothyroidism, dementia from the [facility] due to altered mental status associated with left sided weakness. Missed the TPA apportunity. 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 PT Eval , Antiplatelet Rx with aspirin, Rehab/ SNF. # Hx of Alzheimer's disease. Galantamine # Hx of HTN continue continue Norvasc anf Lasix #Hx of Hypothyroidism continue synthroid will discontinue raloxifene since patient has a recent stroke which can aggrevate the stroke. DVT Px Heparin
[2017-01-03] MEDS: ATORVASTATIN CA 40 MG TABLET (FP) PO SCH (21:59)
[2017-01-04] MEDS: SODIUM CHLORIDE 1,000 ML IV SCH (06:39)
[2017-01-04] MEDS: HEPARIN NA (PORCINE) 5,000 UNITS/ML 1ML VIAL SQ SCH ×2 (06:45→13:42)
[2017-01-04] MEDS: LEVOTHYROXINE NA 50 MCG TABLET (FP) PO SCH (06:45)
[2017-01-04 09:01] VITALS: BP 142/76; PULSE 69; TEMP 97.9
[2017-01-04] MEDS: ASPIRIN COATED 81 MG TABLET.EC PO SCH (09:29)
[2017-01-04] MEDS: amLODIPine BESYLATE 2.5 MG TABLET (FP) PO SCH (09:29)
--- NOTE | 2017-01-04 12:16 | DS ---
Physical Exam: SUBJECTIVE: Pt was seen by speech and swallow and had physical therapy visit last afternoon for ROM exercises. No acute events overnight noted. Pt has no complaints today OBJECTIVE: Vital Signs Period Temp Pulse Resp BP Sys/Gonzalez Pulse Ox Last 24 Hr 97.9 F-99.7 F 65-88 20-20 120-149/60-76 95-97 PHYSICAL EXAM GENERAL: NAD, laying comfortably in bed with elevation in head of bed HEENT: No JVD, Moist mucosa, pt has L-sided facial droop at rest and with intention, R-sided gaze deviation at rest; Pupils FAUSTINA. Pt noted to have dysarthria. LUNGS: CTA bilaterally, no wheezes, rhonchi, rales HEART: RRR, S1, S2 without murmur appreciated. ABDOMEN: Soft, nontender, nondistended, normoactive bowel sounds, no guarding, no rebound EXTREMITIES: 2+ DP pulses, no edema noted. See neurological exam NEUROLOGICAL: R sided gaze deviation. Peripheral vision spared albeit with shifting due to gaze deviation, Pupils FAUSTINA, tongue deviation to the L, could not appreciate uvula deviation, L lower-face hemiparesis resulting in L sided facial droop. RUE: Strength 4/5 with arm flexion/extension, hand-cushion assembler, and wrist flexion and extention; full sensation intact LUE: Strength 0/5, sensation intact to pressure RLE: Strength 2/5 hip flexion, 4/5 leg extension/flexion, dorsal and plantar flexions; sensation fully intact LLE: Strength 0/5 in hip flexion, leg extension/flexion, and dorsal/plantar flexions; again sensation moderately intact to pressure sensation. Babinski: upward on L side; downgoing on R Reflexes: 1/4 with L patellar and heel reflexes, could not assess biceps on L side; 2/4 with R side including biceps, patellar and heel reflexes. SKIN: No rashes or lesions noted LABS Laboratory Results - last 24 hr 01/03/17 01/04/17 21:51 05:24 POC Glucometer 148 101 HOSPITAL COURSE: Date of Admission:01/01/17 Date of Discharge: 01/04/17 Pt was hospitalized on 01/01/17 for increased L-sided weakness, dysarthria, and a L-sided facial droop found to have a CVA confirmed by second Head CT showing: Acute R infarct centered within the R lentiform nuleus, subinsular white matter , upper anterior internal capsule, and right caudate body with no evidence of hemorrhagic transformation. Pt was also found to have moderate ventriculomegaly with prominent temporal horns. Pt was not given TPA due to being out of the window from last known normal. Pt was started on ASA 81mg and loaded with Lipitor 40mg HS. Pt received a Carotid doppler showing no evidence of significant stenosis in either the right or left visualized carotid arteries. Pt had slight improvement through hospital course with significant residual deficits in L upper and lower extremity strength and a L facial droop. Pt is being discharged to SNF and is to continue her ASA and Lipitor alongside of her home medications. Speech and swallow eval: aspiration with thin liquids Echocardiogram: Normal LV function and size with no regional wall abnormalities ; mild MR, mild TR, and mild pulmonary htn with RV elevation in pressure (30-40 mmHg). Minutes to complete discharge: 36 Discharge Summary Reason For Visit: CEREBRALVASCULAR ACCIDENT (CVA) Current Active Problems Cerebrovascular accident (CVA) (Acute) Hypertension (Chronic) Hypothyroidism (Chronic) Condition: Stable - Instructions Diet, Activity, Other Instructions: You were hospitalized for a stroke. Please follow-up with your general medical doctor --If you do not have one please feel free to call [phone] and schedule and appointment for Dr. Rutherford and Dr. Tipton Please follow-up with your neurologist; Dr. Rees was taking care of you in the hospital and his number will be provided for you Medication Changes: You should take a baby (81mg) Aspirin daily to prevent stroke reoccurrence You should take Lipitor 40mg by mouth every night Continue your other meds as you were prior to your hospital stay If you notice increased weakness or have symptoms return please call your doctor or return to the nearest ER for evalution. Referrals: Osiel Rutherford MD [Staff Physician] - Diego Rees MD [Staff Physician] - Disposition: NURSING HOME FACILITY - Home Medications Comprehensive Discharge Medication List: Ambulatory Orders Amlodipine Besylate [Norvasc -] 2.5 mg PO DAILY 01/01/17 Calcium Carbonate [Tums] 200 mg PO 01/01/17 Cholecalciferol (Vitamin D3) [Vitamin D3 -] 1,000 unit PO DAILY 01/01/17 Furosemide [Lasix -] 40 mg PO DAILY 01/01/17 Galantamine Hydrobromide [Razadyne (Nf)] 4 mg NR BID 01/01/17 Levothyroxine [Synthroid -] 50 mcg PO DAILY 01/01/17 Raloxifene HCl 60 mg PO DAILY 01/01/17 Aspirin Coated [Ecotrin -] 81 mg PO DAILY tablet.ec 01/04/17 Atorvastatin Ca [Lipitor] 40 mg PO HS #0 tablet 01/04/17 This patient is new to me today: No Emergency Visit: No Critical Care patient: No - Discharge Referral Referred to [facility] No
--- NOTE | 2017-01-04 13:55 | PN ---
Teaching Attending Note Name of Resident: Carlos Tipton ATTENDING PHYSICIAN STATEMENT I saw and evaluated the patient. I reviewed the resident's note and discussed the case with the resident. I agree with the resident's findings and plan as documented. SUBJECTIVE: Patient is comfortable with no acute distress, no shortness of breath, no fever or chills. No headache, no shortness, better eye contact. OBJECTIVE: Vital Signs Temperature 97.9 F 01/04/17 08:49 Pulse Rate 69 01/04/17 08:49 Respiratory Rate 20 01/04/17 08:49 Blood Pressure 142/76 01/04/17 08:49 O2 Sat by Pulse Oximetry (%) 95 01/04/17 09:00 CBCD WBC 6.2 K/mm3 (4.0-10.0) 01/01/17 00:23 RBC 3.61 M/mm3 (3.60-5.2) 01/01/17 00:23 Hgb 11.3 GM/dL (10.7-15.3) 01/01/17 00:23 Hct 34.2 % (32.4-45.2) 01/01/17 00:23 MCV 94.6 fl (80-96) 01/01/17 00:23 MCHC 33.1 g/dl (32.0-36.0) 01/01/17 00:23 RDW 14.7 % (11.6-15.6) 01/01/17 00:23 Plt Count 203 K/MM3 (134-434) 01/01/17 00:23 MPV 8.4 fl (7.5-11.1) 01/01/17 00:23 CMP Sodium 145 mmol/L (136-145) 01/01/17 06:57 Potassium 4.1 mmol/L (3.5-5.1) 01/01/17 06:57 Chloride 109 mmol/L (98-107) H 01/01/17 06:57 Carbon Dioxide 24 mmol/L (21-32) 01/01/17 06:57 Anion Gap 12 (8-16) 01/01/17 06:57 BUN 18 mg/dL (7-18) D 01/01/17 06:57 Creatinine 0.7 mg/dL (0.55-1.02) 01/01/17 06:57 Creat Clearance w eGFR > 60 (>60) 01/01/17 06:57 Random Glucose 93 mg/dL (74-106) 01/01/17 06:57 Calcium 7.7 mg/dL (8.5-10.1) L 01/01/17 06:57 Total Bilirubin 0.2 mg/dL (0.2-1.0) 01/01/17 06:57 AST 18 U/L (15-37) 01/01/17 06:57 ALT 14 U/L (12-78) 01/01/17 06:57 Alkaline Phosphatase 90 U/L (45-117) 01/01/17 06:57 Total Protein 6.1 g/dl (6.4-8.2) L 01/01/17 06:57 Albumin 2.7 g/dl (3.4-5.0) L 01/01/17 06:57 CARDIAC ENZYMES Creatine Kinase 53 IU/L (26-192) 01/01/17 01:12 Troponin I < 0.02 ng/ml (0.00-0.05) 01/01/17 01:12 Current Medications Generic Name Dose Route Start Last Admin Trade Name Zheng PRN Reason Stop Dose Admin Amlodipine Besylate 2.5 mg 01/03/17 14:00 01/04/17 09:29 Norvasc - PO 2.5 mg DAILY JAVIER Administration Aspirin 81 mg 01/01/17 10:00 01/04/17 09:29 Ecotrin - PO 81 mg DAILY JAVIER Administration Atorvastatin Calcium 40 mg 01/01/17 22:00 01/03/17 21:59 Lipitor - PO 40 mg HS JAVIER Administration Heparin Sodium (Porcine) 5,000 unit 01/01/17 06:00 01/04/17 13:42 Heparin - SQ 5,000 unit TID JAVIER Administration Sodium Chloride 1,000 mls @ 75 mls/hr 01/01/17 03:45 01/04/17 06:39 Normal Saline - IV Not Given ASDIR J[facility] Levothyroxine Sodium 50 mcg 01/03/17 14:00 01/04/17 06:45 Synthroid - PO 50 mcg AM JAVIER Administration Home Medications Medication Instructions Recorded Amlodipine Besylate [Norvasc -] 2.5 mg PO DAILY 01/01/17 Cholecalciferol (Vitamin D3) 1,000 unit PO DAILY 11/11/17 [Vitamin D3 -] Furosemide [Lasix -] 40 mg PO DAILY 01/01/17 Galantamine Hydrobromide [Razadyne 4 mg NR BID 01/01/17 (Nf)] Levothyroxine [Synthroid -] 50 mcg PO DAILY 01/01/17 Aspirin Coated [Ecotrin -] 81 mg PO DAILY tablet.ec 01/04/17 Atorvastatin Ca [Lipitor] 40 mg PO HS #0 tablet 01/04/17 PE: per resident's note CT of head (01/01 PM) shows new right basal ganglia hypodensity; underlying atrophy; left ventricular dilatation. Carotid duplex doppler: Calcified intima and small plaques but no sig hemodynamic lesions. ASSESSMENT AND PLAN: Patient is an 86 year old female with a PMHx of HTN, hypothyroidism, dementia from the [facility] due to altered mental status associated with left sided weakness. Missed the TPA apportunity. 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 PT Eval and Rx. Antiplatelet Rx. Rehab and SNF. # Hx of Alzheimer's disease continue Galantamine # Hx of HTN continue Norvasc and Lasix. DVT Px: Heparin Sq. Patient is getting discharged to Rehab.
--- NOTE | 2017-01-10 11:41 | EKG ---
Test Reason : Blood Pressure : / mmHG Vent. Rate : 066 BPM Atrial Rate : 066 BPM P-R Int : 186 ms QRS Dur : 102 ms QT Int : 432 ms P-R-T Axes : 057 -11 029 degrees QTc Int : 452 ms NORMAL SINUS RHYTHM NORMAL ECG NO PREVIOUS ECGS AVAILABLE Confirmed by AIDA ROTH, LIZ ([id number]) on 01/10/2017 11:41:12 AM Referred By: Confirmed By:LIZ PARRA MD
== END 2017-01-04 14:44 | DRG 65 ==
LOC: JER 00:16 → JERBED 04:30 → J4W 10:05
PROVIDERS: ADMIT Internal Medicine; ATTEND Internal Medicine
DX: I63.8 Other cerebral infarction (principal); I69.854 Hemiplegia and hemiparesis following other cerebrovascular disease affecting left non-dominant side; R29.716 NIHSS score 16; I10 Essential (primary) hypertension; I95.89 Other hypotension; E03.9 Hypothyroidism, unspecified; R29.810 Facial weakness; G30.8 Other Alzheimer's disease; F02.80 Dementia in other diseases classified elsewhere, unspecified severity, without behavioral disturbance, psychotic disturbance, mood disturbance, and anxiety; R13.10 Dysphagia, unspecified
CPT/HCPCS: 36415; 70450-TC; 71010-TC; 74230-TC; 80053; 80061; 82550; 82607; 83036; 83721; 83735; 84100; 84443; 84484; 85025; 85610; 85730; 92611-GN; 93005; 93010; 93306-TC; 93880-TC; 97116-GP; 97161-GP; 99284-25; J1644